=== PATIENT | male | born 1975 | race Caucasian/White ===

== ENCOUNTER 2021-01-01 05:16 | Emergency (ER) | payer BC ==
[~2021-01-01] VITALS: Ht 175.3 cm; Wt 115.7 kg
[2021-01-01] MEDS ORDERED: LISINOPRIL30 MG PO (05:35)
[2021-01-01] MEDS ORDERED: METFORMIN HCL500 MG PO (05:36)
[2021-01-01] MEDS ORDERED: CLONIDINE HCL0.2 MG PO (05:36)
[2021-01-01] MEDS ORDERED: HYDROCHLOROTHIA25 MG PO (05:37)
[2021-01-01] MEDS ORDERED: ADDERALL 10 MG10 MG PO (05:39)
[2021-01-01] MEDS ORDERED: ADDERALL 30 MG30 MG PO (05:39)
--- OUTSIDE RECORDS SUMMARY | 2021-01-01 07:14 | XMS ---
PreManage Notification: ALESHA MONTERROSO [employer] Repairer Events No recent Security Events currently on file [facility] There are no care providers on record at this time. Andres has no Care Guidelines for this patient. Umberto VISIT COUNT (12 MO.) 1 URSULA Garcia TOTAL 1 NOTE: Visits indicate total known visits. ED/C VISIT TRACKING (12 MO.) 01/01/2021 05:17 URSULA [facility] [place] TYPE: Emergency COMPLAINT: - DENTAL PAIN INPATIENT VISIT TRACKING (12 MO.) No inpatient visits to display in this time frame [email or web address]
== END 2021-01-01 06:41 | disposition home or self-care (01) ==
LOC: ED 05:16
DX: K08.89 Other specified disorders of teeth and supporting structures (principal); F10.10 Alcohol abuse, uncomplicated; L53.9 Erythematous condition, unspecified; I10 Essential (primary) hypertension; E11.9 Type 2 diabetes mellitus without complications; Z90.89 Acquired absence of other organs; Z79.84 Long term (current) use of oral hypoglycemic drugs; Z79.899 Other long term (current) drug therapy
CPT/HCPCS: 99282; A9270